=== PATIENT | female | born 2000 | race Caucasian/White ===

== ENCOUNTER 2021-05-11 00:24 | Emergency (ER) | payer OTHER ==
[~2021-05-11] VITALS: Ht 160 cm; Wt 47.3 kg
[2021-05-11] MEDS ORDERED: CYCL10TA9 PO (01:27)
[2021-05-11] MEDS ORDERED: ONDA4TAB11 PO (01:27)
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
[2021-05-11 01:30] VITALS: BP 138/83
== END 2021-05-11 01:35 | disposition home or self-care (01) ==
LOC: ER 00:27
DX: S06.0X0A Concussion without loss of consciousness, initial encounter (principal); Z71.89 Other specified counseling; V77.6XXA Passenger on bus injured in collision with fixed or stationary object in traffic accident, initial encounter
CPT/HCPCS: 99281